=== PATIENT | female | born 1965 | race Caucasian/White ===

== ENCOUNTER 2018-03-18 15:27 | Emergency (ER) | payer OTHER ==
[2018-03-18 15:42] LABS: ADD MAN DIFF? NO
[2018-03-18 15:46] LABS: WHITE BLOOD COUNT 4.1 10^3/ul (4.8-10.8)
[2018-03-18 15:46] LABS: EOSINOPHILS # 0.1 10^3/ul (0.0-0.5); EOSINOPHILS % 2.7 % (0.0-7.0); HEMATOCRIT 30.6 % (37.0-47.0); HEMOGLOBIN 9.3 g/dl (12.0-16.0); LYMPHOCYTES # 1.9 10^3/ul (0.8-2.9); LYMPHOCYTES % 45.9 % (15.0-51.0); MEAN CORPUSCULAR HEMOGLOBIN 23.7 pg (29.0-33.0); MEAN CORPUSCULAR HGB CONC 30.4 g/dl (32.0-37.0); MEAN CORPUSCULAR VOLUME 77.9 fl (82.0-101.0); MEAN PLATELET VOLUME 9.6 fl (7.4-10.4); MONOCYTE # 0.6 10^3/ul (0.3-0.9); MONOCYTES % 13.6 % (0.0-11.0); NEUTROPHIL # 1.5 10^3/ul (1.6-7.5); NEUTROPHILS % 36.6 % (39.0-77.0); PLATELET COUNT 258 10^3/UL (140-415); RED BLOOD COUNT 3.93 10^6/ul (4.20-5.40); RED CELL DISTRIBUTION WIDTH 18.8 % (11.5-14.5)
[2018-03-18 16:07] LABS: ALANINE AMINOTRANSFERASE 36 IU/L (13-69); ALBUMIN 3.7 g/dl (3.3-4.9); ALBUMIN/GLOBULIN RATIO 1.05; ALKALINE PHOSPHATASE 65 IU/L (42-121); ANION GAP 11 (5-13); ASPARTATE AMINO TRANSFERASE 48 IU/L (15-46); BLOOD UREA NITROGEN 6 mg/dl (7-20); CALCIUM 8.5 mg/dl (8.4-10.2); CARBON DIOXIDE 21 mmol/L (21-31); CHLORIDE 107 mmol/L (97-110); CHOL/HDL RATIO 4.1 RATIO; CHOLESTEROL 164 mg/dl (100-200); CREATININE 0.55 mg/dl (0.44-1.00); Estimated GFR > 60 mL/min (>60); GLUCOSE 176 mg/dl (70-220); HDL CHOLESTEROL 40 mg/dl (37-92); INR 0.99; LDL CHOLESTEROL,CALCULATED 83 mg/dl; PROTIME 13.2 Sec (11.9-14.9); SODIUM 139 mmol/L (135-144); TOTAL PROTEIN 7.2 g/dl (6.1-8.1); TRIGLYCERIDES 203 mg/dl (0-149)
[2018-03-18] MEDS: SOD CHLORIDE 0.9% 1,000 ML IV (16:08)
[2018-03-18 16:10] LABS: POTASSIUM 2.9 mmol/L (3.5-5.1)
[2018-03-18 16:19] LABS: TROPONIN-I < 0.012 ng/ml (0.000-0.120)
[2018-03-18] MEDS: POTASSIUM CHLORIDE (SR) 20 MEQ TAB PO (16:31)
[2018-03-18] MEDS: MAGNESIUM SULFATE 1 GM/D5W 100 ML IVPB (17:45)
[2018-03-18 18:05] LABS: ADD UMIC YES; UR ASCORBIC ACID NEGATIVE (NEGATIVE); UR BACTERIA FEW /HPF (NONE SEEN); UR BILIRUBIN (Dip) NEGATIVE (NEGATIVE); UR BLOOD (Dip) 2+ mg/dL (NEGATIVE); UR CLARITY CLEAR (CLEAR); UR COLOR YELLOW (YELLOW); UR GLUCOSE (Dip) 2+ mg/dL (NEGATIVE); UR KETONES (Dip) NEGATIVE (NEGATIVE); UR LEUKOCYTE ESTERASE (Dip) NEGATIVE Leu/ul (NEGATIVE); UR MUCUS FEW /HPF (NONE SEEN); UR NITRITE (Dip) NEGATIVE (NEGATIVE); UR RBC 20 /HPF (0-5); UR SPECIFIC GRAVITY (Dip) 1.009 (1.003-1.030); UR SQUAMOUS EPITHELIAL CELL FEW /HPF (FEW); UR TOTAL PROTEIN (Dip) NEGATIVE (NEGATIVE); UR UROBILINOGEN (Dip) NEGATIVE (NEGATIVE); UR WBC 2 /HPF (0-5)
== END 2018-03-18 19:48 | disposition home or self-care (01) ==
LOC: E/R 15:27
DX: R42 Dizziness and giddiness (principal); R53.1 Weakness; R55 Syncope and collapse
CPT/HCPCS: 71045; 80053; 80061; 81001; 81025; 82962; 83036; 84484; 85025; 85610; 85730; 93005; 96374; 99285-25